=== PATIENT | female | born 1975 | race African-American/Black ===

== ENCOUNTER 2016-06-30 17:08 | Emergency (ER) | payer OTHER ==
[~2016-06-30] VITALS: Ht 167.6 cm; Wt 108.9 kg
[~2016-06-30 17:08] MED LIST: ALBUTEROL 3 ML3 ML INH; ALBUTEROL0.09 MG/A1 INH; AMOX-CLAV 875-1 EACH PO; BENTYL10 M1 PO; BENTYL20 MG PO; CIPROFLOXACIN500 MG PO; CLINDAMYCIN HY300 MG PO; CYCLOBENZAPRINE10 M1 PO; CYCLOBENZAPRINE5 M1 PO; DILAUDID 4 MG TA4 MG PO; HUMALOG 100U100 U/ML SC; HUMULIN-N1000 U/10 SC; HYDROCHLOROTH12.5 M2 PO; HYDROMORPHONE HY4 MG PO; IBUPROFEN800 M1 PO; LISINOPRIL2.5 M1 PO; MACROBID100 MG PO; MIRALAX17 G1 PO; NEURONTIN100 M1 PO; OMEPRAZOLE40 MG PO; OXYCODONE5 MG PO; PERCOCET 325 MG1 TA2 PO; POLYTRIM O200 GTT/BO OPH; PRENATAL1 TA2 PO; PROVENTIL0.09 MG/A1 PO; QUETIAPINE FUM300 MG PO; SENNA S TABLET1 EACH PO; SEROQUEL XR300 M1 PO; SEROQUEL XR300 MG PO; TOPAMAX25 M3 PO; TYLENOL #31 TAB PO; ZOFRAN ODT4 M1 PO; ZOFRAN ODT4 MG PO; ZOVIRAX800 MG PO
--- NOTE | 2016-06-30 20:37 | ED UPPER/LOWER EXTREMITY COMPL ---
History of Present Illness General Chief Complaint: Lower Extremity Problems Stated Complaint: BILAT KNEE PROBLEMS,NO INJ. Source: patient, old records, Epic Exam Limitations: no limitations Vital Signs & Intake/Output Vital Signs & Intake/Output Vital Signs Date Time Temp Pulse Resp B/P Pulse O2 O2 Flow FiO2 Ox Delivery Rate 06/30 2044 97.2 78 17 128/82 99 Room Air 06/30 1929 Room Air 06/30 1714 97.3 88 16 125/85 98 Room Air ED Intake and Output 07/01 0000 06/30 1200 Intake Total Output Total Balance Patient 240 lb Weight Allergies Coded Allergies: NO KNOWN ALLERGIES (09/05/15) Reconcile Medications Albuterol Sulfate (Proventil Hfa) 0.09 MG/Actuation FIONA 2 PUFF PO 4 TIMES/DAY PRN WHEEZING Albuterol Sulfate (Proventil) 2.5 MG/3 ML NEB 3 ML INH Q4P PRN SHORTNESS OF BREATH Amoxicillin/Clavulanate Potass (Amox-Clav 875-125 MG Tablet) 1 EACH TABLET 875 MG PO Q12 PNEUMONIA Dicyclomine Hydrochloride (Bentyl) 10 MG CAPSULE 20 MG PO 4 TIMES/DAY PRN ABDOMINAL PAIN Gabapentin (Neurontin) 100 MG CAPSULE 1 CAP PO TID nerve pain/tingling Humulin N (Delmi) (Humulin-N Insulin) 1,000 U/10 ML SACHIN 43 UNITS SC QPM DIABETES (Reported) Hydrochlorothiazide 12.5 MG TABLET 1 TAB PO DAILY HTN Insulin Lispro (Humalog) 100 U/ML SACHIN DIABETES (Reported) Lisinopril 2.5 MG TABLET 1 TAB PO DAILY HTN Polyethylene Glycol 3350 (Miralax) 17 GM POWD.PACK 1 PAC PO DAILY PRN STOOL SOFTENER dissolve in water Quetiapine Fumarate 300 MG TAB 1 TAB PO DAILY MENTAL HEALTH (Reported) Quetiapine Fumarate (Seroquel XR) 300 MG TAB.ER.24H 1 TAB PO QPM MOOD Sennosides/Docusate Sodium (Senna S Tablet) 1 EACH TABLET 1 TAB PO DAILY PRN STOOL SOFTENER Topiramate (Topamax) 25 MG TABLET 25 MG PO DAILY MENTAL HEALTH (Reported) Tramadol HCl (Ultram) 50 MG TABLET 1-2 TAB PO Q6PRN PRN severe pain Triage Note: PT STATES SHE HAS GASTROPORESIS AND SINCE SHE HAS LOST A LOT OF WT. PT HAVING LEFT KNEE PAIN STATES IT HAS BEEN SWELLING UP AND THE RIGHT KNEE GOES NUMB. PT REPORTS PAIN FOR 2 DAYS LEFT KNEE. Triage Nurses Notes Reviewed? yes Onset: 8 months Duration: continues in ED, 8 months Timing: recent history Severity: moderate Pain/Injury Location: Bilateral: Leg, Knee. Method of Injury: unknown Modifying Factors: Improves With: pain medication. Worsens With: movement. Associated Symptoms: GCS 15 since, stiffness LMP (ages 10-50): unknown : No Patient currently breastfeeds: No HPI: 8 months prior to admission patient complains of bilateral knee and leg pain about varicose veins. Pain is described as sharp constant worse with weightbearing movement not relieved with Tylenol or Motrin. She has had x-rays and rheumatology visits. She denies fever chills nausea vomiting diarrhea abdominal pain chest pain shortness breath headache dysuria rash bleeding Past History Travel History Traveled to [place] past 21 day No Medical History Any Pertinent Medical History? 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 Relation not specified for: FH: CVA (cerebrovascular accident) Hx Contributory? No Review of Systems Review of Systems Constitutional: Reports: no symptoms. EENTM: Reports: no symptoms. Respiratory: Reports: no symptoms. Cardiovascular: Reports: no symptoms. Gastrointestinal/Abdominal: Reports: no symptoms. Genitourinary: Reports: no symptoms. Musculoskeletal: Reports: see HPI, joint pain, muscle pain. Skin: Reports: no symptoms. Neurological/Psychological: Reports: no symptoms. Hematologic/Endocrine: Reports: no symptoms. Immunological: Reports: no symptoms. All Other Systems: Reviewed and Negative Physical Exam Physical Exam General Appearance: well developed/nourished, alert, awake, anxious, mild distress, obese Head: atraumatic, normal appearance Eyes: Bilateral: normal appearance, PERRL, EOMI. Ears, Nose, Throat: normal pharynx, normal ENT inspection, hearing grossly normal Neck: normal inspection, supple, full range of motion, no midline tenderness Cardiovascular/Respiratory: normal breath sounds, normal peripheral pulses, regular rate/rhythm, no respiratory distress Peripheral Pulses: 4+ carotid (R), 4+ carotid (L) Back: normal inspection, normal range of motion, no vertebral tenderness Shoulder Left: normal range of motion, normal inspection Shoulder Right: normal range of motion, normal inspection Elbow Left: normal range of motion, normal inspection Elbow Right: normal range of motion, normal inspection Hand Left: normal inspection, normal range of motion Hand Right: normal inspection, normal range of motion Upper Extremity Reflexes: 2+: bicep (R), bicep (L). Leg Left: normal range of motion, soft tissue tenderness, tender varicose veins Leg Right: normal range of motion, soft tissue tenderness, tender varicose veins Hip Left: normal range of motion, normal inspection Hip Right: normal range of motion, normal inspection Knee Left: normal range of motion, normal inspection Knee Right: normal range of motion, normal inspection Foot Left: normal inspection, normal range of motion Foot Right: normal inspection, normal range of motion Neurologic/Tendon: normal sensation, normal motor functions Skin: intact, normal color, warm/dry Lymphatic: no anterior cervical airam Progress Differential Diagnosis: degenerative joint disease, painful varicose veins Plan of Care: follow up as outpatient Departure Departure Time of Disposition: 2038 Disposition: HOME OR SELF CARE Condition: Stable Clinical Impression Primary Impression: Varicose veins of both lower extremities with pain Secondary Impressions: Arthralgia of left knee Departure Forms: Customer Survey General Discharge Information Prescriptions: Current Visit Scripts Tramadol HCl (Ultram) 1-2 TAB PO Q6PRN PRN severe pain #30 TAB
[2016-06-30 20:45] VITALS: BP 128/82
[2016-06-30] MEDS ORDERED: ULTRAM50 M1 PO (20:45)
== END 2016-06-30 20:52 ==
LOC: ERH 17:08
DX: M25.561 Pain in right knee (principal); M25.562 Pain in left knee